=== PATIENT | female | born 1955 | race Hispanic/Latino ===

== ENCOUNTER → 2023-04-03 | Outpatient (CLI) | payer OTHER ==
[~2023-04-03] MED LIST: LEVO112T7 PO; METO-391 PO
== END | disposition home or self-care (01) ==
LOC: RAH 14:11
PROVIDERS: ATTEND Obstetrics & Gynecology
DX: Z12.31 Encounter for screening mammogram for malignant neoplasm of breast (principal)
CPT/HCPCS: 77067